=== PATIENT | female | born 1975 | race Caucasian/White ===

== ENCOUNTER 2019-03-20 08:45 | Emergency (ER) | payer MEDICAID ==
[~2019-03-20] VITALS: Ht 165.1 cm; Wt 61.0 kg
[~2019-03-20 08:45] MED LIST: PRENATAL ONE T1 EACH PO
[2019-03-20 11:29] LABS: CHLORIDE 108 mEq/L (98-107)
[2019-03-20 12:52] VITALS: BP 145/80
== END 2019-03-20 13:52 | disposition home or self-care (01) ==
LOC: ER 08:45
DX: K80.20 Calculus of gallbladder without cholecystitis without obstruction (principal); Z76.0 Encounter for issue of repeat prescription
CPT/HCPCS: 36415; 76705; 99284